=== PATIENT | female | born 1980 | race Caucasian/White ===

== ENCOUNTER 2018-07-26 06:52 | Emergency (ER) | payer MEDICARE, MEDICAID ==
[~2018-07-26] VITALS: Ht 152.4 cm; Wt 57.9 kg
[2018-07-26 06:54] VITALS: BP 133/78
[2018-07-26] MEDS ORDERED: doxycycline hyclate 100mg tablet.DR PO ONE (07:25)
[2018-07-26] MEDS ORDERED: DOXY100C43 PO (07:31)
[2018-07-26] MEDS ORDERED: DOXYCYCLINE 100MG CAPSULE PO ONE (07:50)
== END 2018-07-26 07:55 | disposition home or self-care (01) ==
LOC: ER 06:52
DX: H00.034 Abscess of left upper eyelid (principal); F17.200 Nicotine dependence, unspecified, uncomplicated
CPT/HCPCS: 99283